=== PATIENT | female | born 1970 | race Caucasian/White ===

== ENCOUNTER → 2018-01-01 10:42 | Outpatient (CLI) | payer OTHER, BC, SELFPAY ==
--- NOTE | 2018-01-01 10:48 | CT_ITS ---
STUDY: CT MAXILLOFACIAL SINUSES REASON FOR EXAM: Female, 47 years old. Chronic maxillary sinusitis RADIATION DOSAGE (If Supplied By Facility): CTDIvol = ( 33.06 ) mGy, DLP = ( 780.13 ) mGycm TECHNIQUE: The patient was scanned in a multi detector CT scanner. High resolution axial imaging was performed without the administration of intravenous contrast material. Sagittal and coronal images were reconstructed. Individualized dose optimization techniques were used for this CT. COMPARISON: None. FINDINGS: : NASAL SEPTUM: The nasal septum is bowed to the left CRIBRIFORM PLATE AND AURELIANO ERIN: The fovea ethmoidalis, lateral lamella and lamina cribrosa are normal. The anterior ethmoidal notch is normal with no supraorbital pneumatization. The olfactory fossa is symmetric with a Keros type II. No skull base dehiscence LAMINA PAPYRACEA: No remote orbital fracture and no orbital prolapse into the ethmoidal sinus . BONY BALLESTEROS: No dehiscence, demineralization or thickness TURBINATES: Normal thickness and no paradoxical orientation. No ham bullosa . No turbinectomy OSTIOMEATAL UNITS: Right-sided Fess procedure with a soft tissue mass within the right maxillary sinus and a 1.2 x 0.6 cm bony projection from the anterior wall of the maxillary sinus into the soft tissue mass. A similar finding was seen in the examination of October 05, 2011 SPHENOETHMOIDAL RECESS: Patent FRONTAL SINUSES: Well developed and pneumatized with no abnormal soft tissue attenuations in them ETHMOID AIR CELLS: Aggar Nasi air cells are noted. No Sandra air cells. Both the anterior and posterior ethmoidal air cells are clear of abnormal soft tissue attenuations MAXILLARY SINUSES: Normal with no arrested pneumatization or hyperpneumatization and no abnormal soft tissue attenuations SPHENOID SINUSES: Normal with conchal, presellar or sellar type pneumatization. No dehiscence into carotid canal and no optic nerve dehiscence within the sphenoid sinus. No Onodi air cells ORBITS: Negative SKULL BASE/CRANIOVERTEBRAL JUNCTION/UPPER CERVICAL SPINE.: Normal CT/Sinus/Facial Bone IMPRESSION: A right sided fess procedure with a 3.1 cm soft tissue tissue mass within the right maxillary sinus and a bony projection arising from the anterior wall of the right maxillary sinus into the soft tissue mass. A similar finding was present in the last examination of October 05, 2011 Electronically Signed: Dane Schultz, at 5:13 EDT Tel , Service support ,
== END ==
LOC: CT 10:45
PROVIDERS: Family Provider Family Medicine; PCP Family Medicine; Visit Provider Otolaryngology
DX: J32.0 Chronic maxillary sinusitis (principal); J33.8 Other polyp of sinus
CPT/HCPCS: 70486

== ENCOUNTER 2018-04-04 08:04 | Day surgery (SDC) | payer OTHER, BC, SELFPAY ==
--- NOTE | 2018-03-26 11:12 | EKG12_ITS ---
Test Reason : PRE OP Blood Pressure : / mmHG Vent. Rate : 067 BPM Atrial Rate : 067 BPM P-R Int : 142 ms QRS Dur : 084 ms QT Int : 396 ms P-R-T Axes : 023 031 060 degrees QTc Int : 418 ms Normal sinus rhythm Normal ECG Confirmed by SHAUNA ROSAS, FATOUMATA ([id number]), desk editor MARTHA JULIO ([id number]) on 03/29/2018 2:58:48 PM Referred By: Jameson Kidd Confirmed By:FATOUMATA VILLATORO MD
[2018-03-26 11:52] LABS: Hematocrit 42.8 % (37-47); Hemoglobin 14.6 g/dl (12.0-15.0); Mean Corp Hgb Conc 34.1 g/gl (32-36); Mean Corpuscular Hgb 30.4 pg (27.0-32.0); Mean Platelet Vol. 10.3 fl (6.2-12.0); Platelet Count 261 K/mm3 (150-450); Red Blood Count 4.81 M/mm3 (4.2-5.4); White Blood Count 5.1 K/mm3 (4.4-11.0)
[2018-03-26 11:55] LABS: Scan Indicated on CBC? Y/N NO
[2018-03-26 12:00] LABS: International Normalized Ratio 0.9; Prothrombin Time (Protime)PT. 12.4 SECONDS (11.7-14.9)
[2018-03-26 12:17] LABS: AST(SGOT) 30 U/L (15-37); Alanine Aminotransfer ALT/SGPT 53 U/L (13-56); Albumin, Serum 3.9 g/dL (3.2-5.0); Alkaline Phosphatase 120 U/L (45-117); Anion Gap 7 (5-15); BUN 9 mg/dL (7-18); BUN/Creat Ratio 10.2 RATIO (10-20); Bilirubin, Direct 0.06 mg/dL (0.00-0.30); Calcium,Total 8.9 mg/dL (8.5-10.1); Chloride 109 mmol/L (98-107); Creatinine, Serum 0.88 mg/dL (0.55-1.02); EST Glomerular Filtration Rate 73 mL/min (>60); Est Glom Filt Rate - Afr Amer 89 mL/min (>60); Globulin 3.3 g/dL (2.2-4.2); Glucose 101 mg/dL (74-106); Potassium 4.5 mmol/L (3.5-5.1); Protein, Total 7.2 g/dL (6.4-8.2); Sodium Level 144 mmol/L (136-145)
[2018-04-04] VITALS (10 sets, daily range): BP systolic 102–120; BP diastolic 63–84; PULSE 66–102; RESP 15–18; TEMP 36.4–36.8; O2SAT 92–99; BMI 30.9
--- NOTE | 2018-04-04 09:45 | TISS_PTH ---
PATIENT: ANT SAUNDERS LOC: [facility] [place] U#:[id number] AGE/SX: 48/F ROOM: RE04/04/[address]: Dr. Jameson Kidd MD : 1970 BED: DIS: 04/04/2018 SPEC #: [id number] RECD: 04/04/18 16:08 STATUS: FELICITA RECallie #: [id number] KARLO: 04/04/18 09:[address]: Jameson Kidd DEPT: SURGICAL PATHOLOGY RECD BY: Peter Barrett ENTERED: 04/05/18 07:08 SP TYPE: Tissue Bx OT DR: MD Dr. 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 A few fragments of bone. Negative for malignancy. VICTORIA:pina 04/08/18 COMMENT Please make reference to previous specimen ([id number]) antrochoanal polyp, right maxillary antrostomy with diagnosis of fragments of inflamed sinonasal polyp and a few fragments consistent with inverted papilloma (Schneiderian papilloma). Case has been reviewed in consultation with Dr. Rodriguez who concurs with the above diagnosis. IDC:AM MICROSCOPIC DESCRIPTION Slides are reviewed. GROSS DESCRIPTION Received in fixative is one container labeled with the patient's name and designated right maxillary sinus tissue. The specimen consists of multiple polypoid fragments of perry soft tissue that in aggregate measure 3 x 2 x 1 cm. Also present in the container are multiple fragments of perry soft tissue mixed with fragments of bone measuring in aggregate 3 x 2.5 x 0.3 cm. The entire specimen is submitted in three cassettes. Cassette 1 is submitted after decalcification. / VICTORIA:pina 04/05/18 TC:1 CPT: 05245, 92618
--- NOTE | 2018-04-04 11:02 | DCINST_ITS ---
You will use the following diet at home:: Regular Discharge Activity: Return to Normal Activity, - - No noseblowing Additional Dressing/Incision Instructions:: Start irrigating 4x/day on 04/05/18. Allergies/Adverse Reactions: Allergies Penicillins [PCN] Allergy (Verified 03/28/18 11:08) Unknown Medications to take at Discharge Multivitamin [Multiple Vitamins] 1 each PO DAILY 02/22/18 Sertraline HCl [Zoloft] 100 mg PO QHS 02/22/18 Primary Care Physician: Kayode García MD [Primary Care Provider] - Test Results: Test results from this visit will be discussed in further detail at your follow- up appointment, if applicable.
--- NOTE | 2018-04-04 12:48 | NURSING ---
back to surgery at this time with Bjorn Cotton CRNA; and Lyle Lima RN.
[2018-04-04] MEDS: Oxymetazoline 0.05% 1 SPRAY SPRAY.BTL 15 SPRAY (13:10)
--- NOTE | 2018-04-04 14:43 | PCM.OPRPT ---
Report of Operation Date of Procedure: 04/04/18 Pre-Operative Diagnosis: right maxillary sinusitis (chronic). right maxillary sinus polyp Post-Operative Diagnosis: same Surgery/Procedure Performed:: right maxillary antrostomy with removal of tissue. right mir lan Description of Surgical Findings:: polyp in right maxillary sinus Type of Anesthesia:: General Anesthesiologist: Talon Bagley Specimen's removed: yes Drains: none Estimated Blood Loss (mL): minimal Description of Procedure: The patient was taken to the OR on 04/04/18. She was placed in the supine position on the OR table. She was given sufficient general endotracheal anesthesia. The head of bed was elevated 30 degrees. She was draped steriley. Zero, 30 and 70 degree scopes were used throughout the entire case. I injected 1% lidocaine with epinephrine into the nasal polyp and middle turbinate. The nasal polyp was resected and chased into a previously created maxillary antrostomy. The maxillary antrostomy was enlarged with a back biter. Next, as much polyp as possible was removed from the maxillary sinus using a 40 degree sinus shaver. However, I could not reach the polyp that remained inferiorly and laterally with traditional instruments or the microdebrider. I thus elected to perform Mir-Lan. I injected local into the gingivolabial sulcus on the right side ( in the area of a previous scar). I then made an incision overlying the previous scar in the gingivolabial sulcus with a 15 blade. I gently dissected sharply with a 15 blade to the bone. I then used cautery on the bone. The soft tissue was elevated off of the maxilla using a freer elevator. The infraorbital nerve (V2 ) was identified and preserved. There was a defect in the bone likely from previous Mir-Lan. I enlarged this with a chisel and then used Rongeurs to further open the maxilla. I used a ring curette to curette the mucosa around the polyp. This was then delivered out of the sinus. There was a lateral outcropping of bone in the maxillary sinus. The polyp appeared to be originating posterior to this bone. I used a rongeur to remove this which provided me access to this area. I then used a curette and removed the remaining polyp. I then irrigated the sinus and suctioned the irrigant. I then placed a scope in the sinus (30 and 70 degree) and inspected the mucosa. There was no further polyp. I then closed the incision with 4-0 chromic interrupted. Next, I suctioned irrigant from the nasopharynx. I placed joycelyn onto the oozing mucosa which provided excellent hemostasis. The procedure was then terminated. The patient was awoken and brought to the recovery room in stable condition. Blood loss minimal, replacement none. Sponge, needle and instrument count were correct at the end of the procedure.
[2018-04-04] MEDS: HYDROcodone Bitartrate/Apap 5/325 Tablet PO (16:46)
== END 2018-04-04 17:01 | disposition home or self-care (01) ==
LOC: SDC 08:05 → AC 08:06
PROVIDERS: Family Provider Family Medicine; PCP Family Medicine; Visit Provider Otolaryngology
PROC: (CPT 31032; principal; 2018-04-04 09:35)
DX: D14.0 Benign neoplasm of middle ear, nasal cavity and accessory sinuses (principal); J32.0 Chronic maxillary sinusitis; J30.2 Other seasonal allergic rhinitis; F41.9 Anxiety disorder, unspecified; F32.9 Major depressive disorder, single episode, unspecified; F17.200 Nicotine dependence, unspecified, uncomplicated; Z86.2 Personal history of diseases of the blood and blood-forming organs and certain disorders involving the immune mechanism; Z79.891 Long term (current) use of opiate analgesic; Z79.899 Other long term (current) drug therapy
CPT/HCPCS: 31032; 31267; 36415; 80048; 80076; 85027; 85610; 85730; 88305; 88311; 93005; J7120; C1769; J2405

== ENCOUNTER → 2019-05-25 07:35 | Outpatient (CLI) | payer OTHER, BC, SELFPAY ==
[2019-05-25 09:18] LABS: Estradiol < 11.0 pg/mL; Follicle Stimulating Hormone 61.2 mIU/mL; Thyroid Stim Hormone (TSH) 2.03 uIU/mL (0.358-3.74)
== END ==
PROVIDERS: Family Provider Family Medicine; PCP Family Medicine
DX: R63.5 Abnormal weight gain (principal); N95.1 Menopausal and female climacteric states
CPT/HCPCS: 36415; 82670; 83001; 84443

== ENCOUNTER → 2020-02-07 09:12 | Outpatient (CLI) | payer BC, SELFPAY ==
[2018-04-04 08:38] VITALS: BMI 30.9
[2020-02-07 10:40] LABS: Absolute Lymphocyte Count 1.94 X10^3/uL (0.83-4.51); Absolute Neutrophil Count 3.2 X10^3/uL (2.0-7.7); Basophil# 0.03 X10^3/uL; Basophil% 0.5 % (0-1); Eosinophil# 0.14 X10^3/uL; Eosinophils% 2.5 % (0-5); Hematocrit 45.1 % (37-47); Hemoglobin 14.8 g/dL (12.0-15.0); Lymphocyte # 1.94 X10^3/ul (4.0); Lymphocyte % 34.5 % (19-41); Mean Corp Hgb Conc 32.8 g/dL (32-36); Mean Corpuscular Hgb 30.1 pg (27.0-32.0); Mean Corpuscular Volume 91.7 fL (81-99); Mean Platelet Vol. 10.5 fl (6.2-12.0); Monocyte# 0.33 X10^3/uL; Monocyte% 5.9 % (0-10); NRBC Flagged by Analyzer 0 % (0-5); Neutrophil # 3.18 X10^3/uL (2.7-7.7); Neutrophil % 56.4 % (47-70); Platelet Count 283 K/mm3 (150-450); RBC Distribution Width CV 12.2 % (11.6-14.6); RBC Distribution Width SD 40.8 fl (35.1-43.9); Red Blood Count 4.92 M/mm3 (4.2-5.4); White Blood Count 5.6 K/mm3 (4.4-11.0)
[2020-02-07 10:57] LABS: Anion Gap 5 (5-15); BUN 17 mg/dL (7-18); BUN/Creat Ratio 19.1 RATIO (10-20); Calcium,Total 9.3 mg/dL (8.5-10.1); Chloride 107 mmol/L (98-107); Creatinine, Serum 0.89 mg/dL (0.55-1.02); EST Glomerular Filtration Rate 72 mL/min (>60); Est Glom Filt Rate - Afr Amer 87 mL/min (>60); Glucose 97 mg/dL (74-106); Potassium 4.3 mmol/L (3.5-5.1); Sodium Level 142 mmol/L (136-145)
== END ==
PROVIDERS: PCP Family Medicine; Visit Provider Family Medicine
DX: Z01.818 Encounter for other preprocedural examination (principal)
CPT/HCPCS: 36415; 80048; 85025

== ENCOUNTER 2022-07-28 14:00 | Outpatient (RCR) | payer BC, SELFPAY ==
--- NOTE | 2022-06-23 13:18 | HP.OTEVAL ---
Patient's Visit Information ANT RUEDA is a 52 year old F, referred to Occupational Therapy by MAUREEN COELLO, with a diagnosis of right hand mass/ numbness/tingling right hand. Date of Evaluation: 06/23/22 Occupational Therapist: Ami Johnson, OTR/L, CHT - Subjective This 52 year old female states symptoms started mid January- had tingling and numbness pt states she opted for sx as conservative method failed- pt states she continues to have numbness in her right thumb and index finger- pt states she has not been able to work due to her fingers being numb. pt states typing was very difficult as well as cooking and cleaning tasks. pt works at. 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 pt states has been helping her with daily tasks- scar is tender and hand is weak. pt would like to return to her PLOF. - Pain right hand 3 Pain Intensity Range: 2, 3 - ROM Wrist: right 75/60 left 70/70 Opposition: Kapandji opposition scale right 10 left 10 ROM Comments: pt demo full composite fist bilaterally - Strength Bit Bender: right 15# left 55# Lateral Pinch: right 8# left 12# Tripod Pinch: right 6# left 14# Tip-to-Tip Pinch: right 4# left 6# Strength Comments: pt demo with weakness of right rating clerk and pinch - Sensation Thumb: right 2.83 left 2.83 Index: right 2.83 left 2.83 Middle: right 2.83 left 2.83 Ring: right 2.83 left 2.83 Little: right 2.83 left 2.83 - Quick DASH-Disab of Arm,Shoulder& Hand Quick DASH Score: 51.6650 - Goals Goal:Daily scar massage when approriate: Yes Goal:ROM equal to unaffected hand: Yes Goal:Bit Bender/Pinch strength at least 75% of unaffected hand: Yes Goal:No pain with affected hand use: Yes Goal:Full use of affected hand in daily activities including: Yes Goal:Decrease scar hypersensitivity: Yes - Rehabilitation General Assessment: pt arrives 5 weeks and 1 day s/p from [facility] and removal of accessory muscle off of the index finger flexor tendons. Pt demo with limited ROM- weakness increasing need of assist with ADls and home mtg. tasks. Pt would benefit from skilled OT services 2xweek for 4 weeks to regain strength and decrease scar sensitivity along with ed. on scar and scar formation to prevent scar adhesions or limited ROM along with ed. on nerve return to return pt to PLOF. Pt demo understanding and agree to POC. Rehabilitation Potential: Excellent - Anticipated Interventions A/AAROM/PROM, Strengthening, Scar Care, Desensitization, Sensory Retraining, Modalities, Joint Protection/Energy Conservation, Ergonomic Education, Fine Motor Coord/Suhail, Sensory Stimulation, Education re assistive Equipment, Education re Diagnosis, Home Program - Visit Plan Frequency: 2x /Week Duration: 4 Weeks TEXT: Thank you for the opportunity to evaluate your patient. For Medicare and Medicare HMO plans, please review the plan of care and approve it. It will need to be FAXED BACK to us at [phone] for Medicare purposes. Please let me know if there are questions or concerns regarding this plan of care. Physician Signature: Date:
--- NOTE | 2022-07-16 14:10 | OTREVAL_ITS ---
MAUREEN COELLO, It has been my pleasure to treat ANT RUEDA over the last 6 visits for right hand mass/ numbness/tingling right hand. Please see the progress note below for an update on the occupational therapy plan of care! Subjective: pt arrives to OT states her ROM is better and feels her strength is getting better and feels she is getting more motion- tingling is not less- about the same and with increase work hand feels stiff will get swelling at times also Objective/Function: right visual communications instructor strength 27# increase from 15#. right lateral pinch 10# increase from 8#. right tripod pinch 10# increase from 6#. right tip pinch 5# increase from 4#. wrist ROM 75/65 increase from 75/60. pt demo good functional fist. scar continues to be sensitive pt is using a scar gel and wrist support - pt scar hypertrophic but not limiting pts full composite fist Plan Frequency: 2x /Week Duration: 2 Weeks Plan: pt to use gel padding for scar sensitivity. return to normal use as able with right hand-. cont scare mobilization. scar desensitization Goals - Goals Patient Goals: Regain Mobility, Regain Strength, Improve Fine Motor Skills, Use Hand/Wrist/Arm Normally Again Goal:Daily scar massage when approriate: Yes Goal:ROM equal to unaffected hand: Yes Goal:Sanitary Inspector/Pinch strength at least 75% of unaffected hand: Yes Goal:No pain with affected hand use: Yes Goal:Full use of affected hand in daily activities including: Yes Goal:Decrease scar hypersensitivity: Yes Anticipated Interventions Anticipated Interventions: A/AAROM/PROM, Strengthening, Scar Care, Desensitization, Sensory Retraining, Modalities, Joint Protection/Energy Conservation, Ergonomic Education, Fine Motor Coord/Suhail, Sensory Stimulation, Education re assistive Equipment, Education re Diagnosis, Home Program Please do not hesitate to contact me at [phone] by phone or if you have questions or concerns regarding this new plan of care! Sincerely, Ami Johnson, OTR/L, CHT
--- NOTE | 2022-07-28 14:36 | HP.OTDCSUM_ITS ---
It has been my pleasure to treat ANT RUEDA under orders from MAUREEN COELLO, for the diagnosis of right hand mass/ numbness/tingling right hand for a total of 9 visit(s). Please see the following information for a summary of their discharge status. % Improvement: 70 Objective/Function: right estate planning paralegal strength 30# this is increase from 15#. right lateral pinch 10# increase from 8#. right tripod pinch 10# increased from 6#. right tip pinch 8# increased from 4#. pt demo hypertrophic scar that is sensitive but pt continues to perform her scar desensitization. pt agrees to DC Patient Goals: Regain Mobility, Regain Strength, Improve Fine Motor Skills, Use Hand/Wrist/Arm Normally Again Goal:Daily scar massage when approriate: Yes Goal:ROM equal to unaffected hand: Yes Goal:Pmo Manager/Pinch strength at least 75% of unaffected hand: Yes Goal:No pain with affected hand use: Yes Goal:Full use of affected hand in daily activities including: Yes Goal:Decrease scar hypersensitivity: Yes Plan: pt to use gel padding for scar sensitivity. return to normal use as able with right hand-. cont scare mobilization. scar desensitization Discharge Comments: Due to loss of insurance - pt requested D/C with [facility]. therapist review scar mtg and nerve healing with pt. pt demo understanding. pt to return to if any concerns arise. If there are questions or concerns regarding this patient's occupational therapy, please fell free to call me at [phone]. Thank you for the referral of this patient. Sincerely, Ami Johnson, OTR/L, CHT
== END 2022-07-28 15:08 | disposition home or self-care (01) ==
LOC: OT 14:00
PROVIDERS: PCP Family Medicine
DX: R22.31 Localized swelling, mass and lump, right upper limb (principal); Z98.890 Other specified postprocedural states
CPT/HCPCS: 97035; 97110; 97140; 97166; 97168; 97530